=== PATIENT | female | born 1965 | race African-American/Black ===

== ENCOUNTER 2017-11-04 02:47 | Emergency (ER) | payer MEDICARE, BC | END 2017-11-04 07:44 | disposition home or self-care (01) | LOC: E/R 02:47 | DX: L73.9 Follicular disorder, unspecified (principal); R40.2142 Coma scale, eyes open, spontaneous, at arrival to emergency department; R40.2252 Coma scale, best verbal response, oriented, at arrival to emergency department; R40.2362 Coma scale, best motor response, obeys commands, at arrival to emergency department | CPT/HCPCS: 99283 ==